=== PATIENT | male | born 1960 | race Caucasian/White ===

== ENCOUNTER 2020-02-27 20:18 | Emergency (ER) | payer OTHER ==
[2020-02-27 20:31] VITALS: BMI 25.8
[2020-02-27] MEDS ORDERED: SODIUM CHLORIDE 1,000 ML IV ONE (20:31)
[2020-02-27] MEDS ORDERED: ACETAMINOPHEN 1000 MG/100 ML VIAL (NON FORMULARY) IVPB ONE (20:31)
[2020-02-27] MEDS ORDERED: ACETAMINOPHEN INJECTION 100 ML IVPB ONE (20:38)
[2020-02-27 21:23] LABS: BASO % 0.3 % (0-2.0); EOS % 0.6 % (0-4.5); HEMATOCRIT 35.5 % (35.4-49); HEMOGLOBIN 11.3 GM/dl (11.7-16.9); LYMPH % 4.8 % (8-40); MCH 28.8 pg (25.7-33.7); MCHC 31.8 g/dl (32.0-35.9); MEAN CELL VOLUME 90.6 fl (80-96); MEAN PLT VOLUME 6.6 fl (7.5-11.1); MONO % 9.2 % (3.8-10.2); NEUT % 85.1 % (42.8-82.8); PLATELET COUNT 530 K/MM3 (134-434); RBC 3.91 M/mm3 (4.00-5.60); RDW 14.4 % (11.9-15.9); WHITE BLOOD COUNT 10.9 K/mm3 (4.0-10.8)
[2020-02-27 21:26] LABS: ACTIVATED PTT 24.3 SECONDS (25.2-36.5)
[2020-02-27 21:30] LABS: INR 1.38 (0.82-1.09); PROTHROMBIN TIME (PATIENT) 15.4 SEC (10.2-13.0)
[2020-02-27 21:31] LABS: ALBUMIN 3.1 g/dl (3.4-5.0); BILIRUBIN,TOTAL 0.7 mg/dl (0.2-1); CALCIUM 8.5 mg/dl (8.5-10); CREATININE 0.9 mg/dl (0.55-1.3); POTASSIUM 3.9 mmol/L (3.5-5.1); TOT PROT 6.4 g/dl (6.4-8.2)
[2020-02-27] MEDS ORDERED: CEFTRIAXONE 1,000 MG in DEXTROSE 5%-WATER - 50 ML IVPB ONE (21:46)
[2020-02-27] MEDS ORDERED: cefTRIAXone SODIUM 1 GM VIAL ONE (21:51)
[2020-02-27 22:06] VITALS: BP 109/68; PULSE 109; TEMP 101.2
--- NOTE | 2020-02-27 23:25 | PDOC ---
Documentation entered by Ramonita Smith SCRIBE, acting as scribe for Mayelin Richardson MD. Mayelin Richardson MD: This documentation has been prepared by the gangaibe, Ramonita Smith SCRIBE, under my direction and personally reviewed by me in its entirety. I confirm that the documentation accurately reflects all work, treatment, procedures, and medical decision making performed by me. History of Present Illness - General Chief Complaint: Cold Symptoms Stated Complaint: FEVER AND CHILLS ON AND OFF SINCE YESTERDAY History Source: Patient Exam Limitations: No Limitations - History of Present Illness Initial Comments: 02/27/20 20:48 The patient is a 59-year-old male who presents to the emergency department with fever and chills. The patient presents with a few days of fever and chills associated with a brief episode of shortness of breath. The patient reports taking Ibuprofen, last dose around 2:00 pm today. Denies any other symptoms. Denies cough or congestion. Denies vomiting, diarrhea, or abdominal pain. Denies sick contact or known COVID contact. Denies urinary symptoms. PAST MEDICAL HISTORY: Depression PAST SURGICAL HISTORY: no significant history FAMILY HISTORY: no pertinent history SOCIAL HISTORY: Pt lives with family and is employed. MEDICATIONS: reviewed ALLERGIES: As per nursing notes PCP: Dr. Barcenas Review of system: General: +fever and chills. No weakness, no weight loss HEENT: No change in vision. No sore throat. No ear pain CardioVascular: +brief episode of shortness of breath. No chest pain. Respiratory: No cough, congestion or wheezing. Gastrointestinal: no nausea, vomiting, diarrhea or constipation, No rectal bleeding Genitourinary: No dysuria, hematuria, or frequency Musculoskeletal: No joint or muscle pain or swelling Neurologic: No headache, vertigo, dizziness or loss of consciousness Psychiatric: nor depression Skin: No rashes or easy bruising Endocrine: no increased thirst or abnormal weight change Allergic: no skin or latex allergy All other systems reviewed and normal Physical exam: General: Well-nourished well-developed individual, no acute distress HEENT: Throat: Normal, tonsils normal, no erythema or exudate Neck: Supple, no meningeal signs, no lymphadenopathy Eyes: Pupils equal reactive and round, extraocular motion intact Chest: Nontender to palpation Cardiac: +tachycardic, S1-S2 normal, regular rate and rhythm, no murmurs rubs or gallops Respiratory: +rhonchi of the left base, No wheezing or crackles. Abdomen: Soft, nondistended, normal bowel sounds, nontender to palpation diffusely Extremities: Warm, dry, no cyanosis, clubbing, or edema Skin: No rashes Neuro: Alert and oriented x3, nonfocal exam, grossly intact, normal gait Psych: Normal mood and affect 02/27/20 23:22 Assessment and plan: This is a 59-year-old male who comes in with fever and chills x1 day. Patient clinically has a rhonchi on the left base however his chest x-ray does not show any infiltrates her chest x-ray likely is lagging behind the clinical exam. Patient given a ceftriaxone here in the emergency room as he did have a mildly elevated white count with left shift. Otherwise his lactic was negative his urine was negative and the rest of his work-up was unremarkable. Patient discharged we will follow-up with his primary care doctor. A Z-Pedro was sent to his pharmacy. Past History - Medical History Allergies/Adverse Reactions: Allergies Allergy/AdvReac Type Severity Reaction Status Date / Time No Known Allergies Allergy Unverified 02/27/20 20:20 Home Medications: Ambulatory Orders Azithromycin [Zithromax 250mg Tablets -] 250 mg PO DAILY #6 tab 02/27/20 Bupropion HCl [Wellbutrin Sr] 150 mg PO DAILY 02/27/20 Venlafaxine HCl [Effexor -] 225 mg PO DAILY 02/27/20 Zolpidem Tartrate [Ambien] 10 mg PO HS 02/27/20 ED Treatment Course - LABORATORY CBC & Chemistry Diagram: 02/27/20 20:45 02/27/20 20:31 Discharge - Discharge Information Problems reviewed: Yes Clinical Impression/Diagnosis: Community acquired pneumonia Qualifiers: Laterality: left Lung location: lower lobe of lung Qualified Code(s): J18.9 - Pneumonia, unspecified organism Condition: Stable Disposition: HOME - Admission No - Additional Discharge Information Prescriptions: Azithromycin [Zithromax 250mg Tablets -] 250 mg PO DAILY #6 tab - Follow up/Referral Referrals: Jose Barcenas [Primary Care Provider] - - Patient Discharge Instructions Additional Instructions: Your exam and blood work is most consistent with a walking pneumonia. However I am unable to say for sure whether or not this could be COVID. A COVID test was sent which should take about 24 to 48 hours. In the meantime you should self isolate until you have the results of your COVID test. If you develop increasing shortness of breath or any other concerns please return to the emergency department. Take Tylenol alternated with ibuprofen every 3-4 hours to control the fevers. For the pneumonia take azithromycin I sent a prescription to your pharmacy pick it up tomorrow and take 2 tablets tomorrow and then 1 tablet a day for the next 4 days after that Return to the emergency department immediately with ANY new, persistent or worsening symptoms. Continue any medications as previously prescribed by your physician. You should follow up with your primary doctor as soon as possible regarding today's emergency department visit. . Please make sure your doctor reviews the results of your emergency evaluation. Thank you for coming to the Emergency Department today for your care. It was a pleasure to see you today. Please note that your evaluation is INCOMPLETE until you follow-up with your doctor. - Post Discharge Activity
== END 2020-02-27 23:36 | disposition home or self-care (01) ==
LOC: FER 20:18
PROC: 3E033NZ Introduction of Analgesics, Hypnotics, Sedatives into Peripheral Vein, Percutaneous Approach (ICD-10-PCS; principal; 2020-02-27)
PROC: 3E033GC Introduction of Other Therapeutic Substance into Peripheral Vein, Percutaneous Approach (ICD-10-PCS; 2020-02-27)
PROC: 3E0337Z Introduction of Electrolytic and Water Balance Substance into Peripheral Vein, Percutaneous Approach (ICD-10-PCS; 2020-02-27)
DX: J18.9 Pneumonia, unspecified organism (principal)
CPT/HCPCS: 36415; 71045-TC-FY; 80053; 81003; 82550; 83605; 84484; 85025; 85610; 85730; 87040; 99285-25; J0131; U0003

== ENCOUNTER 2020-03-05 09:53 | Emergency (ER) | payer OTHER ==
--- NOTE | 2020-03-05 10:00 | PDOC ---
History of Present Illness - General Chief Complaint: Cold Symptoms Stated Complaint: fever Time Seen by Provider: 03/05/20 09:59 - History of Present Illness Initial Comments: 03/05/20 11:25 59 M with depression presented to the ED with fever. Patient is a bounced back. He came here last week with similar complaint. We did bloodwork, urine analysis , chest Xray, d/c with Zpack. Patient finished Zpack last wednesday, felt better. However, on Wednesday, he measured tempt with 101 subsided with motrin. This morning his tempt was 99.5. He endorses mylagisas, mild nausea, febrile, but denies vomiting, diarrhea, SOB. Patient denies sick contact, tested for covid last week and it was negative. PMHX: as in HPI PSHX: none Meds: psy meds Allergies: none Tob: none Etoh: occasional Rec drugs: none PCP: Rosita SLATER GENERAL/CONSTITUTIONAL: +fever or chills. No weakness. HEAD, EYES, EARS, NOSE AND THROAT: No change in vision. No ear pain or discharge. No sore throat. CARDIOVASCULAR: No chest pain or shortness of breath RESPIRATORY: No cough, wheezing, or hemoptysis. GASTROINTESTINAL: + nausea, no vomiting, diarrhea or constipation. GENITOURINARY: No dysuria, frequency, or change in urination. MUSCULOSKELETAL: No joint or muscle swelling or pain. No neck or back pain. SKIN: No rash NEUROLOGIC: No headache, vertigo, loss of consciousness, or change in strength/sensation. ENDOCRINE: No increased thirst. No abnormal weight change HEMATOLOGIC/LYMPHATIC: No anemia, easy bleeding, or history of blood clots. ALLERGIC/IMMUNOLOGIC: No hives or skin allergy. PE febrile 100.3, tachycardic GENERAL: Awake, alert, and fully oriented, in no acute distress HEAD: No signs of trauma, normocephalic, atraumatic EYES: PERRLA, EOMI, sclera anicteric, conjunctiva clear ENT: Auricles normal inspection, hearing grossly normal, nares patent, oropharynx clear without exudates. Moist mucosa NECK: Normal ROM, supple, no lymphadenopathy, JVD, or masses LUNGS: No distress, speaks full sentences, clear to auscultation bilaterally HEART: Regular rate and rhythm, normal S1 and S2, no murmurs, rubs or gallops, peripheral pulses normal and equal bilaterally. ABDOMEN: Soft, nontender, normoactive bowel sounds. No guarding, no rebound. N o masses EXTREMITIES : Normal inspection, Normal range of motion, no edema. No clubbing or cyanosis. NEUROLOGICAL: Cranial nerves II through XII grossly intact. Normal speech, normal gait, no focal sensorimotor deficits SKIN: Warm, Dry, normal turgor, no rashes or lesions noted Past History - Medical History Allergies/Adverse Reactions: Allergies Allergy/AdvReac Type Severity Reaction Status Date / Time No Known Allergies Allergy Verified 03/05/20 09:54 Home Medications: Ambulatory Orders Bupropion HCl [Wellbutrin Sr] 150 mg PO DAILY 02/27/20 Venlafaxine HCl [Effexor -] 225 mg PO DAILY 02/27/20 Zolpidem Tartrate [Ambien] 10 mg PO HS 02/27/20 COPD: No Psychiatric Problems: Yes (DEPRESSION) - Psycho-Social/Smoking History Smoking History: Never smoked - Substance Abuse Hx (Audit-C & DAST Scrn) How often the patient has a drink containing alcohol: Monthly or less Number of drinks the patient has on a typical day: 1 or 2 How often the patient has six or more drinks on one occasion: Never Score: In Men: 4 or > Positive; In Women: 3 or > Positive: 1 Screen Result (Pos requires Nsg. Audit-10AR): Negative In the last yr the pt used illegal drug/Rx for NonMed reason: Yes Score: Yes response is considered Positive: 1 Screen Result (Positive result requires Nsg. DAST-10): Positive *Physical Exam - Vital Signs Last Vital Signs Temp Pulse Resp BP Pulse Ox 100.3 F H 130 H 18 110/66 96 03/05/20 09:54 03/05/20 09:54 03/05/20 09:54 03/05/20 09:54 03/05/20 09:54 ED Treatment Course - LABORATORY CBC & Chemistry Diagram: 03/05/20 10:22 03/05/20 10:22 Medical Decision Making - Medical Decision Making 03/05/20 11:32 59 M with depression bounced back with fever. -will do blood work, and chest xray Blood work revealed no active concerning problem. Xray is normal. Most likely viral related issue, low suspicion for COVID. Treat it with symptomatic treatments and warns for family members in the house. Follow up with PCP. Discharge - Discharge Information Problems reviewed: Yes Clinical Impression/Diagnosis: Viral fever Condition: Stable Disposition: HOME - Follow up/Referral - Patient Discharge Instructions Patient Printed Discharge Instructions: DI for Viral Upper Respiratory Infection -- Adult Additional Instructions: You were seen in the ED for complaints of fever. In the ED you were evaluated with blood work and chest Xray. Your results were negative. There does not appear to be an acute need for immediate hospitalization. You are advised to follow up with your Primary Care Physician within 1 week. Return to the ED immediately if you experience worsening symptoms, or can't breathe, vomiting, chest pain. This most likely is a viral related fever. Please take over the counter motrin or tylenol for fever reduction. Stay hydrated and rest are the crowder to getting better. Please note that you most likely has a viral illness. Make sure you wear mask around family members. Wash hands often. - Post Discharge Activity
[2020-03-05] MEDS ORDERED: ACETAMINOPHEN 325 MG TABLET (FP) PO ONE (10:10)
[2020-03-05] MEDS ORDERED: ACETAMINOPHEN 325 MG TABLET (FP) ONE (10:12)
[2020-03-05 10:13] VITALS: BMI 25.1
[2020-03-05 10:55] LABS: HEMOGLOBIN 10.8 GM/dl (11.7-16.9); MCH 29.3 pg (25.7-33.7); MCHC 32.6 g/dl (32.0-35.9); MEAN CELL VOLUME 89.9 fl (80-96); MEAN PLT VOLUME 6.5 fl (7.5-11.1); PLATELET COUNT 609 K/MM3 (134-434); RBC 3.67 M/mm3 (4.00-5.60); RDW 14.7 % (11.9-15.9); WHITE BLOOD COUNT 10.9 K/mm3 (4.0-10.8)
[2020-03-05 11:03] LABS: ALBUMIN 2.8 g/dl (3.4-5.0); BILIRUBIN,TOTAL 0.5 mg/dl (0.2-1); CREATININE 0.9 mg/dl (0.55-1.3); POTASSIUM 3.7 mmol/L (3.5-5.1); TOT PROT 6.2 g/dl (6.4-8.2)
--- NOTE | 2020-03-05 11:17 | PDOC ---
Attending Attestation - Resident Resident Name: Wes Coffman - ED Attending Attestation I have performed the following: I have examined & evaluated the patient, The case was reviewed & discussed with the resident, I agree w/resident's findings & plan, Exceptions are as noted - HPI HPI: 03/05/20 10:27 59YOM with HTN and depression p/w fever and continued URI symptoms (cough, chest congestion, runny nose, malaise) for more than a week, same as the cause of his presentation to the ED a week ago. He had w/u including labs, COVID-19 swab (negative) and CXR and was able to go home with Z-pack which he states he took exactly as prescribed. States he was feeling better initially immediately after finishing the Z-pack but over the past day has worsened. Denies SOB, chest pain, back pain, dysuria, rash, or other symptoms. - Physicial Exam PE: 03/05/20 11:32 GENERAL: tired but nontoxic-appearing, A/Ox4, no distress, answers questions appropriately, appears hydrated, wearing face mask HEENT: PERRLA, EOMI, moist mucous membranes NECK/BACK: no midline ttp, no spinal stepoff or deformity, no hematoma, full ROM, neck supple CARDIOVASCULAR: regular rhythm, mild tachycardia, no MGR, strong peripheral p ulses, capillary refill 4 seconds, no edema LUNGS/RESPIRATORY: no increased WOB, no cough noted at the time of my exam, lungs CTAB without focal area of decreased breath sounds GI/ABDOMEN: symmetric [id number], normoactive BS, soft, no ttp, no midline pulsatile masses : no CVA tenderness MSK/EXTREMITIES: no muscle atrophy, no acute deformity SKIN: warm and dry, no pallor, no jaundice, no rash, no pathologic-appearing bruising, no skin breakdown, no cuts, no lesions NEUROLOGICAL: GCS 15, CN II-XII grossly intact, 5/5 strength proximally and distally, no facial droop - Medical Decision Making 03/05/20 11:28 59YOM p/w cough, fever, chills, ST, congestion, head-to-toe body aches. Seen a week ago and had essentially normal workup, negative COVID-19 swab at that time. Has been taking OTC medications for sxs, recently finished Z-pack. Patient notes no recent travel or hospitalization (other than ED visit a week ago), not a healthcare worker, but does have recent contacts with similar symptoms. Initial Vital Signs Temp Pulse Resp BP Pulse Ox 100.3 F H 130 H 18 110/66 96 03/05/20 09:54 03/05/20 09:54 03/05/20 09:54 03/05/20 09:54 03/05/20 09:54 CXR: nothing acute. Provider Orders Category Date Time Status Isolation Precautions As directed Care 03/05/20 10:16 Active CBC WITH DIFFERENTIAL Stat Lab 03/05/20 10:22 Results COMP METABOLIC PANEL Stat Lab 03/05/20 10:22 Completed COVID-19 Stat Lab 03/05/20 10:22 Received Acetaminophen [Tylenol -] Medication 03/05/20 10:12 Discontinued 650 mg .ROUTE .STK-MED ONE Acetaminophen [Tylenol -] Medication 03/05/20 10:10 Discontinued 650 mg PO ONCE ONE PORTCXR [CHEST X-RAY PORTABLE*] [RAD] Stat Radiology 03/05/20 10:16 Completed Medications Discontinued Medications Generic Name Dose Route Start Last Admin Trade Name Freq PRN Reason Stop Dose Admin Acetaminophen 650 mg 03/05/20 10:10 03/05/20 10:20 Tylenol - PO 03/05/20 10:11 650 mg ONCE ONE Administration Acetaminophen Confirm 03/05/20 10:12 Tylenol - Administered 03/05/20 10:13 Dose 650 mg .ROUTE .STK-MED ONE Lab Results WBC 10.9 K/mm3 (4.0-10.8) H 03/05/20 10:22 RBC 3.67 M/mm3 (4.00-5.60) L 03/05/20 10:22 Hgb 10.8 GM/dl (11.7-16.9) L 03/05/20 10:22 Hct 33.0 % (35.4-49) L 03/05/20 10:22 MCV 89.9 fl (80-96) 03/05/20 10:22 MCH 29.3 pg (25.7-33.7) 03/05/20 10:22 MCHC 32.6 g/dl (32.0-35.9) 03/05/20 10:22 RDW 14.7 % (11.9-15.9) 03/05/20 10:22 Plt Count 609 K/MM3 (134-434) H 03/05/20 10:22 MPV 6.5 fl (7.5-11.1) L 03/05/20 10:22 Absolute Neuts (auto) 8.5 K/mm3 03/05/20 10:22 Neutrophils % No Result Required. 03/05/20 10:22 Lymphocytes % No Result Required. 03/05/20 10:22 Sodium 133 mmol/L (136-145) L 03/05/20 10:22 Potassium 3.7 mmol/L (3.5-5.1) 03/05/20 10:22 Chloride 102 mmol/L (98-107) 03/05/20 10:22 Carbon Dioxide 22 mmol/L (21-32) 03/05/20 10:22 Anion Gap 9 MMOL/L (8-16) 03/05/20 10:22 BUN 14.0 mg/dl (7-18) 03/05/20 10:22 Creatinine 0.9 mg/dl (0.55-1.3) 03/05/20 10:22 Est GFR (CKD-EPI)AfAm 107.22 03/05/20 10:22 Est GFR (CKD-EPI)NonAf 92.51 03/05/20 10:22 Random Glucose 192 mg/dl (74-106) H 03/05/20 10:22 Calcium 8.0 mg/dl (8.5-10) L 03/05/20 10:22 Total Bilirubin 0.5 mg/dl (0.2-1) 03/05/20 10:22 AST 15 U/L (15-37) 03/05/20 10:22 ALT 18 U/L (13-61) 03/05/20 10:22 Alkaline Phosphatase 65 U/L (45-117) 03/05/20 10:22 Total Protein 6.2 g/dl (6.4-8.2) L 03/05/20 10:22 Albumin 2.8 g/dl (3.4-5.0) L 03/05/20 10:22 After medications and workup is complete, ambulatory pulse ox 97% on RA, BP 109/77, temp 99.7. The patient likely has viral syndrome and is counseled he should expect this to last another week to 10 days. He is counseled on symptom control and staying well hydrated, and on specific return precautions including SOB and chest pain. He is counseled on quarantine as well. Discharge - Discharge Information Problems reviewed: Yes Clinical Impression/Diagnosis: Viral fever Condition: Stable Disposition: HOME - Admission No - Follow up/Referral - Patient Discharge Instructions Patient Printed Discharge Instructions: DI for Viral Upper Respiratory Infection -- Adult Additional Instructions: You were seen in the ED for complaints of fever. In the ED you were evaluated with blood work and chest Xray. Your results were negative. There does not appear to be an acute need for immediate hospitalization. You are advised to follow up with your Primary Care Physician within 1 week. Return to the ED immediately if you experience worsening symptoms, or can't breathe, vomiting, chest pain. This most likely is a viral related fever. Please take over the counter motrin or tylenol for fever reduction. Stay hydrated and rest are the crowder to getting better. Please note that you most likely has a viral illness. Make sure you wear mask around family members. Wash hands often. - Post Discharge Activity
[2020-03-05 11:30] VITALS: BP 109/77; PULSE 105; TEMP 99.5
[2020-03-05 11:37] LABS: ANISOCYTOSIS 1+; PLATELET ESTIMATE INCREASED
== END 2020-03-05 11:50 | disposition home or self-care (01) ==
LOC: FER 09:53
DX: R50.9 Fever, unspecified (principal)
CPT/HCPCS: 36415; 71045-TC-FY; 80053; 85025; 99284-25; U0003

== ENCOUNTER 2020-03-06 15:31 | Emergency (ER) | payer OTHER ==
[2020-03-06 15:40] VITALS: BP 116/75; PULSE 113; TEMP 99.3; BMI 25.8
[2020-03-06] MEDS ORDERED: DIPHTH,PERTUSS(ACELL),TET 0.5 ML DISP.SYRIN IM ONE ×2 (16:03→16:05)
--- NOTE | 2020-03-06 16:06 | PDOC ---
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 No pain. Minimal bleeding. Exam: 5 mm superficial skin avulsion tip of thumb. No penetrating injury. No deep structure or bone exposed. Confined to epidermis. Assessment: Superficial skin avulsion Plan: Hemostasis with pressure. Bacitracin, 2 x 2, with mild pressure applied by tube gauze. Bleeding controlled. Wound care discussed and follow-up as necessary. Fully ambulatory in no pain or other distress at discharge. Past History - Medical History Allergies/Adverse Reactions: Allergies Allergy/AdvReac Type Severity Reaction Status Date / Time No Known Allergies Allergy Verified 03/05/20 09:54 Home Medications: Ambulatory Orders Bupropion HCl [Wellbutrin Sr] 150 mg PO DAILY 02/27/20 Venlafaxine HCl [Effexor -] 225 mg PO DAILY 02/27/20 Zolpidem Tartrate [Ambien] 10 mg PO HS 02/27/20 COPD: No Psychiatric Problems: Yes (DEPRESSION) Other medical history: PNEUMONIA - Immunization History Immunization Up to Date: Yes - Psycho-Social/Smoking History Smoking History: Never smoked - Substance Abuse Hx (Audit-C & DAST Scrn) How often the patient has a drink containing alcohol: 2-4 times / month Score: In Men: 4 or > Positive; In Women: 3 or > Positive: 2 Screen Result (Pos requires Nsg. Audit-10AR): Negative In the last yr the pt used illegal drug/Rx for NonMed reason: No Score: Yes response is considered Positive: 0 Screen Result (Positive result requires Nsg. DAST-10): Negative *Physical Exam - Vital Signs Last Vital Signs Temp Pulse Resp BP Pulse Ox 99.3 F 113 H 18 116/75 99 03/06/20 15:32 03/06/20 15:32 03/06/20 15:32 03/06/20 15:32 03/06/20 15:32 Discharge - Discharge Information Problems reviewed: Yes Clinical Impression/Diagnosis: Avulsion of skin of finger Qualifiers: Encounter type: initial encounter Qualified Code(s): S61.209A - Unspecified open wound of unspecified finger without damage to nail, initial encounter Condition: Improved Disposition: HOME - Admission No - Follow up/Referral Referrals: José Miguel Orozco MD [Staff Physician] - - Patient Discharge Instructions Additional Instructions: Keep clean and dry. Elevate 24 hours. Change dressing in 3 days. Return for wound check if there is redness, swelling, pain, or drainage. Otherwise redress daily with antibiotic and Band- Aid until healed. - Post Discharge Activity
== END 2020-03-06 16:14 | disposition home or self-care (01) ==
LOC: FER 15:31
PROC: 3E0234Z Introduction of Serum, Toxoid and Vaccine into Muscle, Percutaneous Approach (ICD-10-PCS; principal; 2020-03-06)
DX: S61.209A Unspecified open wound of unspecified finger without damage to nail, initial encounter (principal)
CPT/HCPCS: 90715; 99284-25